=== PATIENT | male | born 1995 | race Caucasian/White ===

== ENCOUNTER → 2021-03-13 | Outpatient (CLI) | payer OTHER | LOC: COL.VAS 02-22 14:45 | DX: R07.9 Chest pain, unspecified (principal); R06.02 Shortness of breath ==

== ENCOUNTER 2021-12-22 16:13 | Emergency (ER) | payer OTHER ==
[~2021-12-22] VITALS: Ht 182.9 cm; Wt 100.0 kg
[2021-12-22] MEDS ORDERED: PRILOTC PO (16:20)
[2021-12-22 18:16] VITALS: BP 134/80; PULSE 62
== END 2021-12-22 18:17 | disposition home or self-care (01) ==
LOC: COL.ER 16:13
DX: G89.18 Other acute postprocedural pain (principal); Z90.09 Acquired absence of other part of head and neck
CPT/HCPCS: J0696; J1100; J1170; J7030

== ENCOUNTER → 2022-12-18 | Outpatient (CLI) | payer OTHER ==
[~2022-12-18] MED LIST: PRILOTC PO
== END ==
LOC: COL.RAD 12:57
DX: M25.552 Pain in left hip (principal)
CPT/HCPCS: J3301